=== PATIENT | female | born 1975 | race African-American/Black ===

== ENCOUNTER 2018-11-12 19:27 | Emergency (ER) | payer SELFPAY ==
[~2018-11-12] VITALS: Ht 152.4 cm; Wt 101.7 kg
[~2018-11-12 19:27] MED LIST: advair; albuterol
[2018-11-12] MEDS ORDERED: ALBUTEROL (0.083%) 2.5MG/3ML NEB HHN ONE (21:15)
[2018-11-12] MEDS ORDERED: SODIUM CHLORIDE 0.9% 1,000 ML IV ONE (21:15)
[2018-11-12] MEDS ORDERED: METHYLPREDNISOLONE SOD SUCC 125 MG/2 ML VIAL IV ONE (21:15)
[2018-11-12 21:23] LABS: BASOPHILS % 0.8 % (0.0-2.0); EOSINOPHILS % 5.6 % (0.0-5.0); HEMOGLOBIN. 8.6 g/dL (12.0-16.0); LYMPHOCYTES % 29.5 % (20.0-50.0); MEAN CORPUSCULAR VOLUME 64.9 fL (81.0-99.0); MEAN PLATELET VOLUME 8.4 fl (7.4-10.4); MONOCYTES % 5.4 % (2.0-8.0); NEUTROPHILS % 58.7 % (40.0-76.0); PLATELET 304 x1000/uL (130-400); RED BLOOD CELL COUNT 4.32 mill/uL (4.2-5.4); RED CELL DISTRIBUTION WIDTH 20.3 % (11.6-14.6)
[2018-11-12 21:30] LABS: CHLORIDE 109 mEq/L (98-107)
[2018-11-12 21:40] LABS: PLATELET ESTIMATE NORMAL
[2018-11-13 00:47] VITALS: BP 125/78
== END 2018-11-13 00:50 | disposition home or self-care (01) ==
LOC: ER 19:27
DX: J45.901 Unspecified asthma with (acute) exacerbation (principal); R06.03 Acute respiratory distress; F12.10 Cannabis abuse, uncomplicated; D64.9 Anemia, unspecified; F31.9 Bipolar disorder, unspecified; Z98.890 Other specified postprocedural states; Z88.0 Allergy status to penicillin
CPT/HCPCS: 36415; 71045; 80053; 85025; 93005; 96374; 99284; J2930; J7030; J7611